=== PATIENT | female | born 1935 | race Caucasian/White ===

== ENCOUNTER 2023-02-20 10:06 | Emergency (ER) | payer OTHER ==
[~2023-02-20] VITALS: Ht 160 cm; Wt 82.6 kg
[2023-02-20 10:20] VITALS: BP 129/50; PULSE 73; TEMP 97.6; O2SAT 95
[2023-02-20] MEDS ORDERED: cephALEXin 500 MG CAP PO ONE (10:50)
[2023-02-20] MEDS ORDERED: NON ADHERENT DRESSING TP SCH (10:50)
[2023-02-20] MEDS ORDERED: CLOTRIMAZOLE 1% 30 GM CRM TUBE TP SCH (10:50)
[2023-02-20] MEDS ORDERED: ONDANSETRON 4 MG ODT PO ONE (10:55)
[2023-02-20] MEDS ORDERED: MORPHINE SULFATE 4 MG/ML SYR IM ONE (10:55)
[2023-02-20] MEDS ORDERED: NACL 0.9% 1,000 ML IV ONE (11:00)
[2023-02-20] MEDS ORDERED: ONDANSETRON 4 MG/2 ML VIAL IVP ONE (11:00)
[2023-02-20] MEDS ORDERED: MORPHINE SULFATE 4 MG/ML SYR IVP ONE (11:00)
[2023-02-20 11:48] LABS: BASOPHILS % (AUTO) 0.6 % (0.0-2.0); EOSINOPHILS # (AUTO) 0.1 K/uL (0-0.4); EOSINOPHILS % (AUTO) 1.1 % (0.0-4.0); HEMATOCRIT 38.4 % (36-48); HEMOGLOBIN 12.8 g/dL (12.0-16.0); LYMPHOCYTES # (AUTO) 1.3 K/uL (2.5-16.5); LYMPHOCYTES % (AUTO) 16.1 % (20.5-51.1); MEAN CORPUSCULAR HEMOGLOBIN 30 pg (27-31); MEAN CORPUSCULAR HGB CONC 33 g/dL (33-37); MEAN CORPUSCULAR VOLUME 89.8 fL (80-94); MONOCYTES # (AUTO) 0.5 K/uL (0.8-1.0); NEUTROPHILS % (AUTO) 76.2 % (42.2-75.2); PLATELET COUNT (AUTO) 161 K/uL (140-450); RED BLOOD CELL COUNT(AUTO) 4.28 MIL/uL (4.20-5.40); RED CELL DISTRIBUTION WIDTH 15.5 % (11.6-13.7); WHITE BLOOD COUNT (AUTO) 7.9 K/uL (4.8-10.8)
[2023-02-20 12:00] LABS: ANION GAP 9.5 (8-16); CARBON DIOXIDE 30.9 mmol/L (21-32); CHLORIDE 94 mmol/L (98-107); GLUCOSE 372 mg/dL (74-106); POTASSIUM 4.4 mmol/L (3.5-5.1); SODIUM SERUM 130 mmol/L (136-145); UREA NITROGEN, BLOOD 30 mg/dL (7-18)
[2023-02-20] MEDS ORDERED: INSULIN REGULAR, HUMAN 100 UNIT/ML VIAL SUBQ ONE (12:15)
[2023-02-20] MEDS ORDERED: ACET-10509 PO (14:12)
[2023-02-20] MEDS ORDERED: LOTC TP (14:12)
[2023-02-20] MEDS ORDERED: CEPH-588 PO (14:12)
[2023-02-20 17:32] VITALS: TEMP 96.4; O2SAT 99
[2023-02-20 19:51] VITALS: BP 107/47; PULSE 66; RESP 9
== END 2023-02-20 19:46 | disposition home or self-care (01) ==
LOC: MED 10:06
DX: B35.6 Tinea cruris (principal); L03.116 Cellulitis of left lower limb; L03.115 Cellulitis of right lower limb; E11.9 Type 2 diabetes mellitus without complications; Z79.4 Long term (current) use of insulin; Z79.899 Other long term (current) drug therapy
CPT/HCPCS: 36415; 72192; 80048; 85025; 96361; 96372; 96374; 96375; 99285; J1815; J2270; J2405; J7030

== ENCOUNTER 2023-03-22 20:10 | Emergency (ER) | payer OTHER ==
[~2023-03-22] VITALS: Ht 160 cm; Wt 61.2 kg
[~2023-03-22 20:10] MED LIST: ACET-10509 PO; CEPH-588 PO; LOTC TP
[2023-03-22 20:12] VITALS: BP 109/47; PULSE 66; RESP 12; TEMP 99; O2SAT 98
[2023-03-22 20:24] VITALS: O2SAT 98
[2023-03-22 22:31] VITALS: O2SAT 96
[2023-03-23 00:41] VITALS: O2SAT 96
[2023-03-23 02:51] VITALS: O2SAT 96
[2023-03-23 05:45] VITALS: O2SAT 96
[2023-03-23 11:20] VITALS: BP 141/68; PULSE 78; RESP 15; TEMP 98.1; O2SAT 95
== END 2023-03-23 11:20 | disposition home or self-care (01) ==
LOC: MED 20:23
DX: S63.592A Other specified sprain of left wrist, initial encounter (principal); S60.411A Abrasion of left index finger, initial encounter; S60.413A Abrasion of left middle finger, initial encounter; I10 Essential (primary) hypertension; E11.9 Type 2 diabetes mellitus without complications; Z79.4 Long term (current) use of insulin; Z79.899 Other long term (current) drug therapy; W18.30XA Fall on same level, unspecified, initial encounter; Y93.89 Activity, other specified; Y92.89 Other specified places as the place of occurrence of the external cause; Y99.8 Other external cause status
CPT/HCPCS: 73110; 73130; 99285